=== PATIENT | female | born 1940 | race Caucasian/White ===

== ENCOUNTER → 2017-07-04 | Outpatient (CLI) | payer OTHER ==
[~2017-07-04] MED LIST: AMLODIPINE BESYL5 MG; ASCORBIC ACID500 M3 PO; B-12 PO; B-121500 MCG PO; BACTRIM,SEPT1 TABLET PO; DOXAZOSIN MESYLA4 MG; DOXYCYCLINE HY100 MG PO; IRON325 MG PO; LOSARTAN-HCTZ1 EAC2; METFORMIN HCL500 MG; PREDNISONE20 MG PO; TYLENOL PM; TYLENOL PM EX-1 EACH PO; ULTRAM50 MG PO; VALTREX1000 MG PO; VICODIN,LORT1 TABLET PO; ZOFRAN4 MG PO
== END | disposition home or self-care (01) ==
LOC: CDC 10:55
DX: Z01.810 Encounter for preprocedural cardiovascular examination (principal); G56.03 Carpal tunnel syndrome, bilateral upper limbs
CPT/HCPCS: 93000

== ENCOUNTER 2017-10-24 11:12 | Inpatient (IN) | payer OTHER ==
[~2017-10-24] VITALS: Ht 167.6 cm; Wt 79.8 kg
[~2017-10-24 11:12] MED LIST changes: -AMLODIPINE BESYL5 MG; +AMLODIPINE BESYL5 MG PO; -B-12 PO; +CYANOCOBALAM1000 MCG PO; -DOXAZOSIN MESYLA4 MG; +DOXAZOSIN MESYLA4 MG PO; -TYLENOL PM
[2017-10-24 11:45] LABS: BASOPHIL (%) 0.3 % (0-1); EOSINOPHIL (%) 1.5 % (0-5); EOSINOPHIL COUNT 0.2 K/uL (0-0.3); HEMOGLOBIN 12.1 G/DL (11.9-15.5); IMMATURE GRANULOCYTE (%) 0.3 % (0.0-0.7); LYMPHOCYTE (%) 7.3 % (15-42); LYMPHOCYTE COUNT 0.8 K/uL (1.0-2.8); MCHC 32.7 G/DL (30.0-36.0); MCV 82.6 FL (83-99); MONOCYTE (%) 5.1 % (3-12); MONOCYTE COUNT 0.5 K/uL (0-0.8); NEUTROPHIL (%) 85.5 % (45-76); NEUTROPHIL COUNT 9.1 K/uL (1.8-6.4); PLATELET COUNT 277 K/uL (156-360); RBC DIS.WIDTH-CV 13.8 % (11.8-14.6); RED BLOOD COUNT 4.48 M/uL (3.80-5.20); WHITE BLOOD COUNT 10.6 K/uL (4.1-10.2)
[2017-10-24 11:53] LABS: INTER. NORMALIZED RATIO 1.2
[2017-10-24 11:57] LABS: CHLORIDE 106 mEq/L (99-109); POTASSIUM 3.5 mEq/L (3.7-5.4); SODIUM 141 mEq/L (136-147)
[2017-10-24 11:58] LABS: GLUCOSE 122 mg/dL (70-99)
[2017-10-24 12:02] LABS: CREATININE 0.8 mg/dL (0.6-1.3); GFR ESTIMATE (CALCULATED) > 59 mL/min/
[2017-10-24 12:03] LABS: UREA NITROGEN (BUN) 19 mg/dL (9-23)
[2017-10-24 16:08] LABS: HEMATOCRIT 33.5 % (36.0-46.0); MCV 82.7 FL (83-99)
[2017-10-24] MEDS ORDERED: VALSARTAN-HCTZ1 EAC3 PO (16:12)
[2017-10-24] MEDS ORDERED: ATORVASTATIN CA10 MG PO (16:13)
[2017-10-24] MEDS ORDERED: AMARYL1 MG PO (16:13)
[2017-10-24] MEDS ORDERED: ADULT ASPIRIN R81 MG PO (16:14)
[2017-10-24] MEDS ORDERED: VITAMIN D-32000 UNI2 PO (16:14)
[2017-10-24] MEDS ORDERED: DAILY VALUE1 EACH PO (16:14)
[2017-10-24 17:35] VITALS: BP 179/73
[2017-10-25 00:03] VITALS: BP 125/59
[2017-10-25 00:27] LABS: HEMATOCRIT 32.1 % (36.0-46.0); HEMOGLOBIN 10.6 G/DL (11.9-15.5); MCV 83.4 FL (83-99)
[2017-10-25 05:23] LABS: HEMATOCRIT 34.1 % (36.0-46.0); HEMOGLOBIN 10.6 G/DL (11.9-15.5); MCH 26.2 PG (29.0-34.0); MCHC 31.1 G/DL (30.0-36.0); MCV 84.4 FL (83-99); PLATELET COUNT 241 K/uL (156-360); RBC DIS.WIDTH-CV 13.9 % (11.8-14.6); RBC DIS.WIDTH-SD 43.2 % (39-53); RED BLOOD COUNT 4.04 M/uL (3.80-5.20); WHITE BLOOD COUNT 9.9 K/uL (4.1-10.2)
[2017-10-25 06:19] LABS: ALBUMIN 3.3 G/DL (3.2-4.8); CHLORIDE 108 MEQ/L (99-109); CREATININE 0.6 MG/DL (0.6-1.3); GFR ESTIMATE (CALCULATED) > 59 mL/min/; PHOSPHORUS 2.8 mg/dL (2.5-4.9); POTASSIUM 3.8 MEQ/L (3.7-5.4); SODIUM 142 MEQ/L (136-147); UREA NITROGEN (BUN) 10 mg/dL (9-23)
[2017-10-25 06:22] LABS: GLUCOSE 89 mg/dL (70-99)
[2017-10-25 07:47] VITALS: BP 129/59
[2017-10-25 08:27] LABS: HEMATOCRIT 35.3 % (36.0-46.0); HEMOGLOBIN 11.1 G/DL (11.9-15.5); MCV 83.6 FL (83-99)
[2017-10-25 15:44] VITALS: BP 175/79
[2017-10-26] VITALS: BP 132/46
[2017-10-26 05:53] LABS: BASOPHIL (%) 0.6 % (0-1); BASOPHIL COUNT 0.1 K/uL (0-0.1); EOSINOPHIL (%) 3.9 % (0-5); EOSINOPHIL COUNT 0.3 K/uL (0-0.3); HEMATOCRIT 33.7 % (36.0-46.0); HEMOGLOBIN 10.6 G/DL (11.9-15.5); IMMATURE GRANULOCYTE (%) 0.4 % (0.0-0.7); LYMPHOCYTE (%) 13.5 % (15-42); LYMPHOCYTE COUNT 1.1 K/uL (1.0-2.8); MCH 26.4 PG (29.0-34.0); MCHC 31.5 G/DL (30.0-36.0); MCV 83.8 FL (83-99); MONOCYTE (%) 6.2 % (3-12); MONOCYTE COUNT 0.5 K/uL (0-0.8); NEUTROPHIL (%) 75.4 % (45-76); NEUTROPHIL COUNT 6.4 K/uL (1.8-6.4); PLATELET COUNT 233 K/uL (156-360); RBC DIS.WIDTH-CV 13.8 % (11.8-14.6); RBC DIS.WIDTH-SD 42.5 % (39-53); RED BLOOD COUNT 4.02 M/uL (3.80-5.20); WHITE BLOOD COUNT 8.4 K/uL (4.1-10.2)
[2017-10-26 06:12] LABS: CHLORIDE 110 MEQ/L (99-109); CREATININE 0.7 MG/DL (0.6-1.3); GFR ESTIMATE (CALCULATED) > 59 mL/min/; GLUCOSE 83 mg/dL (70-99); POTASSIUM 3.9 MEQ/L (3.7-5.4); SODIUM 145 MEQ/L (136-147); UREA NITROGEN (BUN) 9 mg/dL (9-23)
[2017-10-26 07:45] VITALS: BP 125/78
[2017-10-26] MEDS ORDERED: FLAGYL500 MG PO (12:12)
== END 2017-10-26 13:06 | disposition home or self-care (01) | DRG 394 ==
LOC: EME 11:12 → EDOF 14:42 → ENRESERV 14:51 → 5SOUTH 17:27
PROVIDERS: Emergency Medicine; Internal Medicine; Physician Assistant; Student in an Organized Health Care Education/Training Program
DX: K55.9 Vascular disorder of intestine, unspecified (principal); K62.5 Hemorrhage of anus and rectum; E11.43 Type 2 diabetes mellitus with diabetic autonomic (poly)neuropathy; K31.84 Gastroparesis; I10 Essential (primary) hypertension; E78.5 Hyperlipidemia, unspecified; K57.30 Diverticulosis of large intestine without perforation or abscess without bleeding; Z79.84 Long term (current) use of oral hypoglycemic drugs; Z79.82 Long term (current) use of aspirin
CPT/HCPCS: 74177; 80048; 80069; 82948; 85014; 85018; 85025; 85027; 85610; 87493; 87506; 99281; 99285; J1956; J7030; S0030